=== PATIENT | female | born 1980 | race Caucasian/White ===

== ENCOUNTER 2020-06-06 13:47 | Outpatient (CLI) | payer BC, SELFPAY | END 2020-06-06 13:48 | disposition home or self-care (01) | LOC: ANHAUDIO 13:50 | PROVIDERS: PCP Family Medicine | DX: H90.41 Sensorineural hearing loss, unilateral, right ear, with unrestricted hearing on the contralateral side (principal); H90.72 Mixed conductive and sensorineural hearing loss, unilateral, left ear, with unrestricted hearing on the contralateral side | CPT/HCPCS: 92557; 92567 ==